=== PATIENT | female | born 1970 | race Caucasian/White ===

== ENCOUNTER 2017-11-21 14:22 | Emergency (ER) | payer BC ==
[~2017-11-21] VITALS: Ht 175.3 cm; Wt 126.0 kg
[2017-11-21] MEDS ORDERED: XIIDRA5 % OU (14:33)
[2017-11-21] MEDS ORDERED: METHOTREXA IM (14:35)
[2017-11-21] MEDS ORDERED: ZYRTEC10 MG PO (14:35)
[2017-11-21] MEDS ORDERED: PRILOSEC20 MG/CAP PO (14:36)
[2017-11-21] MEDS ORDERED: PROBIOTIC250 MG PO (14:37)
[2017-11-21] MEDS ORDERED: SPIRIVA RE1.25 MCG/A IN (14:38)
[2017-11-21] MEDS ORDERED: BREO ELLIPTA 101 INH IN (14:38)
[2017-11-21] MEDS ORDERED: FLONASE AL50 MCG/ACT IN (14:39)
[2017-11-21] MEDS ORDERED: CURCUMIN 95500 MG PO (14:40)
[2017-11-21 15:18] LABS: HEMATOCRIT 39.7 % (37.0-47.0); HEMOGLOBIN 13.3 g/dl (12.0-16.0); IMMATURE GRANULOCYTES 0.4 % (0.0-1.0); MEAN CELL VOLUME 91.7 fL CALC (80.0-100.0); MEAN CORPUSCULAR HGB 30.7 pG CALC (26.0-32.0); MEAN CORPUSCULAR HGB CONC 33.5 g/L CALC (32.0-36.0); NEUT# 6.38 thou/uL (2.00-7.15); RED BLOOD COUNT 4.33 mill/uL (4.20-5.60); RED CELL DISTRI WIDTH 12.9 % (11.5-15.5)
[2017-11-21 15:19] LABS: URINE BILIRUBIN - DIPSTICK NEGATIVE (NEGATIVE); URINE BLOOD DIPSTICK NEGATIVE (NEGATIVE); URINE COLOR YELLOW; URINE GLUCOSE - DIPSTICK NEGATIVE (NEGATIVE); URINE KETONE NEGATIVE (NEGATIVE); URINE LEUK ESTERASE NEGATIVE (NEGATIVE); URINE NITRITE - DIPSTICK NEGATIVE (Negative); URINE PROTEIN - DIPSTICK NEGATIVE (NEG-TRACE); URINE UROBILINOGEN - DIPSTICK 0.2 E.U./dL (0.2)
[2017-11-21 15:21] LABS: URINE CLARITY CLEAR
[2017-11-21 15:36] LABS: ALBUMIN 4.5 g/dL (3.2-5.0); ALKALINE PHOSPHATASE 84 u/l (38-126); ANION GAP 15 (6-22 (CALC)); BILIRUBIN, TOTAL 0.5 mg/dL (0.0-1.4); BUN 10 mg/dL (7-17); BUN/CREATININE RATIO 15 (12-20 (CALC)); CARBON DIOXIDE 27 mmol/l (22-30); CHLORIDE 106 mmol/l (95-108); CREATININE 0.7 mg/dL (0.5-1.0); GFR > 60 ML/MIN (>=60 (CALC)); GFR FOR AFR.AMER. > 60 ML/MIN (>=60 (CALC)); GLUCOSE 103 mg/dL (65-105); POTASSIUM 4.9 mmol/l (3.5-5.1); SGOT/AST 21 u/l (14-36); SGPT/ALT 30 u/l (9-52); SODIUM 143 mmol/l (137-146); TOTAL PROTEIN 7.1 g/dL (6.3-8.2)
[2017-11-21] MEDS ORDERED: ZOFRAN4 MG/TAB PO (16:30)
[2017-11-21 16:35] VITALS: BP 146/70
[2017-11-21] MEDS ORDERED: AMBIEN10 MG PO (16:48)
== END 2017-11-21 16:45 | disposition home or self-care (01) | DRG 103 ==
LOC: ED 14:22
PROVIDERS: Emergency Medicine
DX: R51 Headache (principal); G89.29 Other chronic pain